=== PATIENT | female | born 1965 | race Caucasian/White ===

== ENCOUNTER 2019-08-20 08:39 | Day surgery (SDC) | payer OTHER ==
[~2019-08-20 08:39] MED LIST: BACITRACIN 50000 UNIT VIAL ONE; CEFAZOLIN SODIUM 1 GM/VIAL ONE; FENTANYL CITR 250 MCG/5 ML ONE; GENTAMICIN SULF 80 MG/2ML INJ ONE; LIDOCAINE 1% W/EPI 1:100,000 MDV 20 ML VIAL ONE; LIDOCAINE 2% MPF 5 ML VIAL ONE; MIDAZOLAM HCL 2 MG/2 ML INJ ONE; NS 0.9% VIAL 60 ML ONE; ONDANSETRON 4 MG/2 ML VIAL ONE; ROCURONIUM 50 MG/5 ML VIAL IV ONE; dexAMETHasone 10 MG/ML VIAL ONE; propofoL 200 MG/20 ML VIAL IV ONE
[2019-08-20 08:41] LABS: Absolute Lymphocytes (CBC) 1.3 K/uL (0.7-4.9); Basophils % 0.3 % (0-1.3); Hematocrit 39.7 % (36.0-45.0); Lymphocytes % 24.8 % (15.3-44.8); MPV 6.7 fL (7.6-11.3)
--- NOTE | 2019-08-20 08:50 | EKG ---
Test Date: 2019-08-20 Test Time: 07:19:58 Resource Program Teacher: JOSEE MEASUREMENT RESULTS: Intervals: Rate: 56 SD: 154 QRSD: 76 QT: 424 QTc: 409 Weldon: P: 62 SD: 154 QRS: 13 T: 35 INTERPRETIVE STATEMENTS: Sinus bradycardia Low voltage QRS Borderline ECG No previous ECG available for comparison Electronically Signed On 08-20-19 08:50:07 CDT by Xander Milan
[2019-08-20] MEDS ORDERED: CEFAZOLIN/SWI 1gm 1 GM/10 ML SYR ONE (08:52)
[2019-08-20] MEDS ORDERED: SCOPOLAMINE HYDROBROMIDE PATCH TD ONE (08:52)
[2019-08-20] MEDS ORDERED: Ringers Lactate 1,000 ML IV ONE ×3 (08:52→09:47)
--- NOTE | 2019-08-20 08:56 | RAD REPORT ---
EXAM DESCRIPTION: Yassine Pa And Lat (2 Views)08/20/2019 8:39 am CLINICAL HISTORY: Preop for breast surgery COMPARISON: None FINDINGS: Small opacity abutting the left hemidiaphragm probably an eventration. Small diaphragmati c hernia is another consideration Lungs appear clear of acute infiltrate. Heart is normal size
[2019-08-20] MEDS ORDERED: EPHEDRINE SULF 50 MG/ML VIAL ONE (09:50)
[2019-08-20] MEDS ORDERED: Mastisol Adhesive Liq ONE (10:32)
[2019-08-20] MEDS ORDERED: KETOROLAC 30 MG/ML INJ ONE (13:07)
[2019-08-20] MEDS ORDERED: MORPHINE 10 MG/ML VIAL ONE (13:19)
[2019-08-20] MEDS ORDERED: ONDANSETRON 4 MG/2 ML VIAL ONE (14:22)
[2019-08-20] MEDS ORDERED: HYDROMORPHONE HCL 1 MG/ML INJ ONE (14:22)
[2019-08-20 14:58] VITALS: O2SAT 94
[2019-08-20] MEDS ORDERED: CODEINE 30MG/APAP 300MG TAB ONE (15:13)
[2019-08-20 16:12] VITALS: BP 102/66; TEMP 98.2
--- NOTE | 2019-08-21 08:31 | OP ---
Surgeon: Abdulkadir Garcia MD Vice President Talent Management: Kana. Preoperative Diagnosis: Breast descent. Postoperative Diagnosis: Breast descent. Procedure Performed: Breast lift. Anesthesia: General. Procedure In Detail: After satisfactory induction of general anesthesia, the chest was prepped with DuraPrep and dry sterile drapes applied in the usual manner. A 45 mm template was used to outline th e right and left areolas and the transverse curvilinear incisions were made and the skin was de-epith elialized with dermbrader or EpiCut. Then a transverse incision was made with electrocautery. The f lap was thinned to 1.2 cm, elevated towards the sternum, clavicle, and anterior and axillary line. T his was done on both sides simultaneously. Then lateral incisions made and then the inferior incisio n was made and the de-epithelialized tissue was performed into the cone after excess tissue was resec malcolm laterally. Conization was performed with 2-0 PDS sutures. Straps were elevated at 12 o'clock, 1 :30, and 3 o'clock positions and then the straps were woven in and out pectoralis muscle back to the base of the cone, tied themselves with 2-0 PDS sutures. This was done stent with 12 o'clock and 1:30 straps. The 3 o'clock strap was sewn over the sternum at 3 o'clock position with 2-0 Ethibond. Lef t side was done in an identical manner. The wounds were temporarily stapled shut. Patient was sat u p, asymmetry was then marked as well as dog ears. Patient was returned supine. Excess scraggly dog- ears dissected. Electrocautery was used for hemostasis. Wound was irrigated with antibiotic solutio n. A 10-CASS was brought out of axilla, sewn in place with 2-0 silk and it was closed in layer with 3- 0 Vicryl subcu, 3-0 PDS running subcuticular tied in the vertical meridian of the breast. Both sides were done in an identical manner. Patient was sat up, site for new nipple-areolar complex was marke d out and sites were marked, then patient returned supine. Tissue was cored out, nipples delivered, sewn with interrupted 4-0 PDS, followed by 4-0 PDS running subcuticular. Dressings consisted of tinc ture of benzoin, Steri-Strips, 5 x 5s, fluffs, and Shreyas wrap. The patient tolerated the procedure wel l and returned to recovery. The amount removed from the right breast 116 g, left 94. AMANDA/KYELR Voice ID: [id number] Report ID: [id number]
== END 2019-08-20 16:05 | disposition home or self-care (01) ==
LOC: OR 08:39
PROVIDERS: ATTEND Specialist
PROC: 0H0V0ZZ Alteration of Bilateral Breast, Open Approach (ICD-10-PCS; principal; 2019-08-20 09:00)
DX: N64.81 Ptosis of breast (principal); E07.9 Disorder of thyroid, unspecified
CPT/HCPCS: 93005; 85025; 36415; 88305; 71046; 19316; J2704; J1580; J2250; J3010; J1100; J1170; J0690 ×2; J7120 ×2; J2405 ×2; 88302

== ENCOUNTER 2020-04-08 08:13 | Day surgery (SDC) | payer OTHER ==
[2020-04-08 08:14] LABS: Absolute Lymphocytes (CBC) 1.5 K/uL (0.7-4.9); Basophils % 0.5 % (0-1.3); Hematocrit 39.9 % (36.0-45.0); Lymphocytes % 30.1 % (15.3-44.8); MPV 7.2 fL (7.6-11.3); RBC Red Blood Cell Count 4.63 M/uL (3.86-4.86)
[2020-04-08 08:15] LABS: Urine Appearance CLOUDY; Urine Bilirubin NEGATIVE (NEG); Urine Blood NEGATIVE (NEG); Urine Color YELLOW; Urine Glucose NEGATIVE (NEG); Urine Microscopic Reflex ORDER UMIC; Urine Protein NEGATIVE (NEG); Urine Specific Gravity 1.025 (1.005-1.030); Urine Urobilinogen 0.2 mg/dL (0.2-1.0)
[2020-04-08 08:23] LABS: Calcium Oxalate Crystals- Ur PRESENT (NONE SEEN); Urine Bacteria >50 /HPF (<20); Urine Culture Reflex Order REFLEXED; Urine Mucus LIGHT /HPF (NONE SEEN); Urine RBC <5 /HPF (NONE SEEN)
[2020-04-08 08:40] VITALS: O2SAT 100
[2020-04-08] MEDS ORDERED: SCOPOLAMINE HYDROBROMIDE PATCH TD ONE ×2 (09:00→09:19)
--- NOTE | 2020-04-08 09:06 | RAD REPORT ---
EXAM DESCRIPTION: RAD - Chest Pa And Lat (2 Views) - 04/08/2020 8:11 am CLINICAL HISTORY: preop, pending abdominoplasty COMPARISON: Two view chest August 2019 TECHNIQUE: Frontal and lateral views of the chest were obtained. FINDINGS: The lungs are clear. Heart size is normal and central vasculature is within normal limit s. No pleural effusion or pneumothorax seen. No acute bony finding noted. No aortic abnormality. No significant change from comparison. IMPRESSION: No acute cardiopulmonary process.
[2020-04-08] MEDS ORDERED: Ringers Lactate 1,000 ML IV ONE ×4 (09:10→14:25)
[2020-04-08] MEDS: CEFAZOLIN/SWI 1gm 1 GM/10 ML SYR ONE ×2 (09:23→09:30)
[2020-04-08] MEDS ORDERED: propofoL 200 MG/20 ML VIAL IV ONE (09:26)
[2020-04-08] MEDS ORDERED: GLYCOPYRROLATE 0.2 MG/ML SYR ONE ×3 (09:26→11:42)
[2020-04-08] MEDS ORDERED: ROCURONIUM 50 MG/5 ML VIAL IV ONE ×2 (09:26→10:29)
[2020-04-08] MEDS ORDERED: LIDOCAINE 2% MPF 5 ML VIAL ONE (09:27)
[2020-04-08] MEDS ORDERED: FENTANYL CITR 250 MCG/5 ML ONE (09:27)
[2020-04-08] MEDS ORDERED: ONDANSETRON 4 MG/2 ML VIAL ONE (09:28)
[2020-04-08] MEDS ORDERED: KETOROLAC 30 MG/ML INJ ONE (09:28)
[2020-04-08] MEDS ORDERED: MIDAZOLAM HCL 2 MG/2 ML INJ ONE (09:28)
[2020-04-08] MEDS ORDERED: dexAMETHasone 4 MG/ML VIAL ONE (09:31)
[2020-04-08] MEDS ORDERED: Mastisol Adhesive Liq ONE ×2 (10:41→13:14)
--- NOTE | 2020-04-08 10:42 | EKG ---
Test Date: 2020-04-08 Test Time: 07:47:10 General Maintenance Helper: JOSEE MEASUREMENT RESULTS: Intervals: Rate: 54 NJ: 154 QRSD: 70 QT: 442 QTc: 419 [place]: P: 59 NJ: 154 QRS: 12 T: 41 INTERPRETIVE STATEMENTS: Sinus bradycardia Low voltage QRS Borderline ECG Compared to ECG 08/20/2019 07:19:58 No significant changes Electronically Signed On 04-08-20 10:42:10 CDT by Xander Milan
[2020-04-08] MEDS ORDERED: EPHEDRINE SULF 50 MG/ML VIAL ONE (12:14)
[2020-04-08] MEDS ORDERED: Phenylephrine HCl 10 MG/ML 1 ML VIAL ONE (12:15)
[2020-04-08] MEDS ORDERED: FENTANYL CITR 100 MCG/2 ML ONE (13:37)
[2020-04-08] MEDS ORDERED: CODEINE 30MG/APAP 300MG TAB ONE (15:49)
[2020-04-08] MEDS ORDERED: EPINEPHRINE/PF 1 MG/ML AMP ONE (16:08)
[2020-04-08] MEDS ORDERED: NA CHLORIDE 0.9% 1,000 ML ONE (16:08)
[2020-04-08 18:00] VITALS: BP 100/67; TEMP 97.3
--- NOTE | 2020-04-11 13:38 | OP ---
Surgeon: Abdulkadir Garcia MD Preoperative Diagnoses: Abdominal lipodystrophy, lipodystrophy of back, scars status post breast lift, hypermastia, and excess skin of the arms. Postoperative Diagnoses: Abdominal lipodystrophy, lipodystrophy of back, scars status post breast lift, hypermastia, and excess skin of the arms. Procedure Performed: Liposuction of the back with fat transfer to the breast, scar revision of the breast, skin tummy tuck, and brachioplasty. Anesthesia: General. Operative Note: After satisfactory induction of general anesthesia, the patient was placed prone on operating table. The back prepped with DuraPrep, dry sterile drapes applied in the usual manner. Incision made laterally bilaterally and then over sacrum and then above the bra line. This was done with 11 blade. A 2.5 mm cannula was introduced. A 1000 cc of fluid were introduced in the right and left back in the midline. Then, a 4 mm cannula was aspirated from the 4 holes. The amount removed was approximately 400 cc. The 2 midline wounds were closed with 4-0 PDS, tincture of benzoin, Steri-Strips. The patient was placed supine. The arm was prepped circumferentially and breast and abdomen prepped. The patient then had the skin Incision made from anterior iliac spine to the pubic tubercle. Flaps were elevated towards the sternum. Elliptical incision made around the umbilicus. Flap was split and elevated, continued to the sternum. The excess skin was cut off, 10 CASS was brought out laterally, sewn in place with 2-0 silk, and quilting sutures of 0 Vicryl were used. Incision was made for the new umbilicus and the wound was then closed with 3-0 Vicryl subcu, 3-0 PDS running subcuticular tied lateral to medial and tied in the vertical meridian of the abdomen. 4-0 prolene sutures were used to sew the umbilicus back to its new position. Attention was then turned to the arms. The patient had an incision made to the length of the arm from the epicondyle toward the axilla and then posteriorly staple stapled. . The flap was elevated off the fascia. The flap was then placed on tension and advanced proximally as well as anteriorly . then a 10 CASS brought out inferior and held in place with 3-0 silk and the wound closed with 3-0 Vicryl subcu, 3-0 PDS running subcuticular. Both sides were done. Then the breast scars were incised medially for revision to reposition them in the inframammary fold. Once incision was made, it went on the right breast from the approximately 3 o'clock to 6 o'clock position and on the left breast from 9 o'clock to 6 o'clock position. Scalpe was used to incise the subcutaneous tissue, then the wound had 3-0 Vicryl placed. After that, the fat was harvested and was allowed to gravitate and was injected with 250 cc on the right, 225 cc on the left. the fat was injected within the cone as well as the periphery and then the wounds were closed with 3-0 Vicryl and then 3-0 PDS running subcuticular. Then, dressings of tincture of benzoin, Steri-Strips, fluffs were applied over the breast and Shreyas wrap loosely. The arms were covered with Kerlix and the abdomen was covered with 4x4s and tape. The patient also had the girdle applied from the back to the thighs. AMANDA/KYLER Voice ID: [id number] Report ID: [id number]
== END 2020-04-08 16:27 | disposition home or self-care (01) ==
LOC: OR 08:13
PROVIDERS: ATTEND Specialist
PROC: 0HB5XZZ Excision of Chest Skin, External Approach (ICD-10-PCS; 2020-04-08)
PROC: 0J0F0ZZ Alteration of Left Upper Arm Subcutaneous Tissue and Fascia, Open Approach (ICD-10-PCS; principal; 2020-04-08 10:00)
PROC: 0J0D0ZZ Alteration of Right Upper Arm Subcutaneous Tissue and Fascia, Open Approach (ICD-10-PCS; 2020-04-08 10:00)
PROC: 0J080ZZ Alteration of Abdomen Subcutaneous Tissue and Fascia, Open Approach (ICD-10-PCS; 2020-04-08 10:00)
PROC: 0H0V3ZZ Alteration of Bilateral Breast, Percutaneous Approach (ICD-10-PCS; 2020-04-08 10:00)
DX: L98.7 Excessive and redundant skin and subcutaneous tissue (principal); E88.1 Lipodystrophy, not elsewhere classified; L90.5 Scar conditions and fibrosis of skin; N64.82 Hypoplasia of breast
CPT/HCPCS: 93005; 85025; 87086; 71046; 36415; 15836; 15830; 15847; 15771; 15772 ×9; 11406; J2704; J1100; J0171; J2370; J2250; J3010 ×2; J0690; J7120 ×4; J7030; J2405; 81003; 81015; 87088